=== PATIENT | female | born 1965 | race Caucasian/White ===

== ENCOUNTER 2023-06-17 10:57 | Emergency (ER) | payer BC, OTHER ==
[~2023-06-17] VITALS: Ht 157.5 cm; Wt 68.5 kg
[2023-06-17 11:11] VITALS: BP_SYST 138; PULSE 66; RESP 16; TEMP 98.9; O2SAT 98
[2023-06-17] MEDS ORDERED: METH-634 PO (12:35)
[2023-06-17] MEDS ORDERED: NAPR-690 PO (12:35)
[2023-06-17] MEDS: KETOROLAC TROMETHAMINE 30 MG VIAL IM ONE (13:22)
[2023-06-17 15:11] VITALS: BP_SYST 138; PULSE 70; RESP 18; TEMP 98.9; O2SAT 98
== END 2023-06-17 14:45 | disposition home or self-care (01) ==
LOC: SED 10:57
DX: M79.662 Pain in left lower leg (principal); R03.0 Elevated blood-pressure reading, without diagnosis of hypertension; M79.7 Fibromyalgia
CPT/HCPCS: 99283; 96372; J1885